=== PATIENT | male | born 1965 | race Caucasian/White ===

== ENCOUNTER 2017-03-08 13:47 | Day surgery (SDC) | payer OTHER ==
[2017-03-07 12:54] VITALS: BMI 25.0
[2017-03-08] MEDS ORDERED: LIDOCAINE HCL/PF 2% SDV 5ML VIAL ONE (14:35)
[2017-03-08] MEDS ORDERED: ROCURONIUM BROMIDE 50 MG/5 ML VIAL ONE ×2 (14:36→16:24)
[2017-03-08] MEDS ORDERED: PROPOFOL 20 ML ONE (14:36)
[2017-03-08] MEDS ORDERED: MIDAZOLAM HCL 2 MG/2 ML SINGLE DOSE VIAL ONE (15:05)
--- NOTE | 2017-03-08 15:08 | HP ---
History & Physical Update - History History: No Change - Physical Physical: No Change - Assessment Assessment: No Change - Plan Plan: No Change
[2017-03-08] MEDS ORDERED: BUPIVACAINE HCL/PF 0.5% (5MG/ML) 10 ML VIAL ONE (15:14)
[2017-03-08] MEDS ORDERED: ceFAZolin SODIUM 1 GM VIAL IVPB ONE (15:40)
[2017-03-08] MEDS ORDERED: BUPIVACAINE HCL/PF 0.5% (5MG/ML) 10 ML VIAL IJ ONE (16:18)
[2017-03-08] MEDS ORDERED: PROMETHAZINE HCL 25 MG/1 ML VIAL IVPUSH PRN (17:07)
[2017-03-08] MEDS ORDERED: ONDANSETRON 4 MG/2 ML VIAL IVPUSH PRN (17:07)
[2017-03-08] MEDS ORDERED: LACTATED RINGERS SOLUTION 1,000 ML IV SCH (17:15)
[2017-03-08] MEDS ORDERED: DEXAMETHASONE SOD PHOSPHATE 4 MG/1 ML VIAL ONE (17:30)
[2017-03-08] MEDS ORDERED: GLYCOPYRROLATE 0.2 MG/1 ML VIAL ONE ×2 (17:35→17:37)
[2017-03-08] MEDS ORDERED: NEOSTIGMINE METHYLSULFATE 0.5 MG/ML - 10 ML MDV ONE (17:38)
[2017-03-08] MEDS ORDERED: KETOROLAC TROMETHAMINE 30 MG/1 ML VIAL ONE ×2 (17:41→17:42)
--- NOTE | 2017-03-08 17:58 | OP ---
Operative Note - Note: Operative Date: 03/08/17 Pre-Operative Diagnosis: umbilical hernia Operation: robotic assisted laparoscopic repair of umbilical hernia with mesh Post-Operative Diagnosis: Same as Pre-op Surgeon: Richard Fisher Online Producer: Dyan Story Anesthesiologist/OPERATIONS LIEUTENANT: Tere Irwin Anesthesia: General Estimated Blood Loss (mls): 10 Fluid Volume Replaced (mls): 1,200 Operative Report Dictated: Yes
--- NOTE | 2017-03-08 17:59 | SURG ---
Surgery Shirt Maker Note Shirt Maker: Dyan Story PA-C Date of Service: 03/08/17 Diagnosis: umbilical hernia Procedure: robotic assisted laparoscopic repair of umbilical hernia with mesh I was present for the entirety of the operative procedure. For further detail, please refer to operative report. Visit type - Case Type Case Type: Scheduled Admission
[2017-03-08] MEDS ORDERED: ACETAMINOPHEN 325 MG TABLET (FP) PO PRN (18:03)
[2017-03-08] MEDS ORDERED: oxyCODONE HCL 5 MG TABLET PO PRN (18:03)
[2017-03-08 20:56] VITALS: BP 130/83; PULSE 80; TEMP 97
--- NOTE | 2017-03-10 13:29 | PATH ---
Surgical Pathology Report Patient Name: MARCELL FRY [facility]. Rec. #: [id number] /Age/Gender: 1965 (Age: 51) / M Account: [id number] Location: [facility] SURGICAL Taken: 03/08/2017 Received: 03/09/2017 Reported: 03/10/2017 Physicians: Richard Fisher M.D. 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 Comment: Recommend correlation with clinical findings and follow up as clinically indicated. Electronically Signed Fredrick Henry M.D. Gross Description Received in formalin labeled "glycoma," is a 3.5 x 2.4 x 1.4 cm aggregate of 2 irregular portions of fibromembranous tissue with attached fat, consistent with portions of a hernia sac. No masses are identified. Finished Goods Planner sections are submitted in one cassette. /03/09/2017 [facility]03/09/2017
== END 2017-03-08 21:36 | disposition home or self-care (01) ==
LOC: JASU-SURG 13:47 → J8W 20:42 → JASU-SURG 21:36
PROVIDERS: ATTEND Surgery
PROC: 8E0W4CZ Robotic Assisted Procedure of Trunk Region, Percutaneous Endoscopic Approach (ICD-10-PCS; 2017-03-08)
PROC: 0WUF4JZ Supplement Abdominal Wall with Synthetic Substitute, Percutaneous Endoscopic Approach (ICD-10-PCS; principal; 2017-03-08 15:15)
DX: K42.9 Umbilical hernia without obstruction or gangrene (principal)
CPT/HCPCS: 49652; S2900; 88304-TC; 94760